=== PATIENT | female | born 1995 | race Two or more races ===

== ENCOUNTER 2023-12-18 07:16 | Inpatient (IN) | payer SELFPAY ==
[2023-12-18] MEDS ORDERED: Acetaminophen 325 MG Tab PO PRN (08:00)
[2023-12-18] MEDS ORDERED: Calcium Carbonate 500 MG Tab.Chew PO PRN (08:00)
[2023-12-18] MEDS ORDERED: Sodium Chloride 0.9% 10 ML Syringe FLUSH PRN (08:00)
[2023-12-18] MEDS ORDERED: Oxytocin/0.9 % Sodium Chloride 30 UNIT/500 ML BAG IV SCH (08:00)
[2023-12-18] MEDS ORDERED: Ondansetron 4 MG/2 ML SDV IVPUSH PRN (08:00)
[2023-12-18 08:44] LABS: BASOPHILS PERCENT AUTO 0.4 % (0.0-1.0); EOSINOPHILS ABSOLUTE AUTO 0.1 K/mm3 (0.0-0.4); EOSINOPHILS PERCENT AUTO 1.7 % (0.0-6.0); HEMATOCRIT 33.9 % (37.0-47.0); HEMOGLOBIN 11.5 gm/dl (12.0-16.0); IMMATURE GRAN ABSOLUTE AUTO 0.04 K/mm3 (0.00-0.05); IMMATURE GRAN PERCENT AUTO 0.6 % (0.0-0.4); LYMPHOCYTES ABSOLUTE AUTO 1.3 K/mm3 (1.0-4.8); MEAN CORPUSCULAR HGB CONC 33.9 g/dl (32.0-36.0); MEAN CORPUSCULAR VOLUME 91.4 fl (83.0-99.0); MEAN PLATELET VOLUME 10.5 fl (9.4-12.3); MONOCYTES ABSOLUTE AUTO 0.6 K/mm3 (0.0-0.8); MONOCYTES PERCENT AUTO 9.1 % (0.0-8.0); NEUTROPHILS PERCENT AUTO 70.2 % (41.0-71.0); PLATELET COUNT,PLT 222 K/mm3 (150-400); RED BLOOD CELL COUNT 3.71 M/mm3 (4.10-5.30); WHITE BLOOD CELL COUNT,WBC 7.06 K/mm3 (3.9-11.3)
[2023-12-18] MEDS: Misoprostol 25 MCG (1/4 of 100 MCG) Tab VAG ONE (09:27)
[2023-12-18] MEDS: Sodium Chloride 0.9% 10 ML Syringe FLUSH SCH (09:35)
[2023-12-18] MEDS: Misoprostol 25 MCG (1/4 of 100 MCG) Tab VAG PRN (13:34)
[2023-12-18] MEDS: Lactated Ringers 1,000 ML IV SCH (22:33)
[2023-12-19] MEDS: Oxytocin/0.9 % Sodium Chloride 30 UNIT/500 ML BAG IV SCH (00:44)
[2023-12-19] MEDS: Nalbuphine 10 MG/1 ML Vial IVPUSH PRN (08:31)
[2023-12-19] MEDS ORDERED: ePHEDrine 50 MG/ML SDV IVPUSH PRN (12:49)
[2023-12-19] MEDS ORDERED: Bupivacaine/fentaNYL/NS 100 ML Bag EPIDUR PRN (12:49)
[2023-12-19] MEDS ORDERED: fentaNYL 100 MCG/2 ML SDV EPIDUR PRN (12:49)
[2023-12-19] MEDS ORDERED: diphenhydrAMINE 50 MG/ML SDV IVPUSH PRN (12:49)
[2023-12-19] MEDS: Lidocaine 1% 50 ML MDV INJECT PRN (16:05)
[2023-12-19] MEDS: Ibuprofen 600 MG Tab PO SCH (16:40)
[2023-12-19] MEDS: Benzocaine/Menthol 20%-0.5% Spray 78 GM Cannister TOP PRN (18:06)
[2023-12-19] MEDS: Witch Hazel Medicated Pads 40/Jar TOP PRN (18:06)
[2023-12-20 05:38] LABS: HEMATOCRIT 29.4 % (37.0-47.0); MEAN CORPUSCULAR HEMOGLOBIN 30.7 pg (28.0-32.0); MEAN CORPUSCULAR HGB CONC 33.7 g/dl (32.0-36.0); MEAN CORPUSCULAR VOLUME 91.3 fl (83.0-99.0); MEAN PLATELET VOLUME 10.6 fl (9.4-12.3); PLATELET COUNT,PLT 206 K/mm3 (150-400); RED BLOOD CELL COUNT 3.22 M/mm3 (4.10-5.30); WHITE BLOOD CELL COUNT,WBC 17.05 K/mm3 (3.9-11.3)
[2023-12-20 06:08] LABS: HEMOGLOBIN 9.9 gm/dl (12.0-16.0)
[2023-12-20] MEDS: Ferrous Sulfate 324 MG Tab.EC PO SCH (08:46)
[2023-12-20] MEDS: Prenatal Multivitamin with Calcium/Folic Acid/Iron Tab PO SCH (08:46)
[2023-12-20] MEDS: Ibuprofen 600 MG Tab PO SCH (09:09)
[2023-12-20] MEDS: Docusate Sodium 100 MG Cap PO PRN (17:11)
[2023-12-21] MEDS: Measles, Mumps & Rubella Vaccine 0.5 ML SDV SUBCUT ONE (14:13)
== END 2023-12-21 14:30 | disposition home or self-care (01) | DRG 807 ==
LOC: JD.OB 07:16 → OBSVTOIN 12-19 15:50 → JD.OB 12-19 15:51
PROVIDERS: ADMIT Family Medicine; ATTEND Family Medicine
PROC: 10E0XZZ Delivery of Products of Conception, External Approach (ICD-10-PCS; principal; 2023-12-19)
PROC: 3E0234Z Introduction of Serum, Toxoid and Vaccine into Muscle, Percutaneous Approach (ICD-10-PCS; 2023-12-19)
DX: O99.02 Anemia complicating childbirth (principal); Z37.0 Single live birth; Z3A.39 39 weeks gestation of pregnancy; Z23 Encounter for immunization
CPT/HCPCS: 36415; 59025; 59409; 85025; 85027; 86592; 90471; 90707; A9270-GY; J2001; J2300; J3490; J7120; J7999